=== PATIENT | male | born 1935 | race Two or more races ===

== ENCOUNTER 2019-04-18 13:27 | Emergency (ER) | payer MEDICARE, MEDICAID ==
[~2019-04-18] VITALS: Ht 170.2 cm; Wt 77.1 kg
[2019-04-18 13:36] VITALS: BP 115/68
[2019-04-18] MEDS ORDERED: VITAMIN B125000 MCG IM (13:39)
[2019-04-18] MEDS ORDERED: IRON159 MG PO (13:39)
--- NOTE | 2019-04-18 13:40 | NUR ---
ED Nurse Note: Patient brought in by medical staff from outpatient clinic due to tripped and fell incident prior to arrival to ED. Skin tear/laceration on bilateral hand noticed. patient is alert awake x4 ambulatory, breathing unlabored and even. patient denies any head injury.
--- NOTE | 2019-04-18 13:40 | Emergency Room Report ---
History of Present Illness General Chief Complaint: Multiple Trauma/Fall Source: Patient, Family Member Present Illness HPI 83-year-old male history of colon cancer in remission presents with bilateral wrist pain, patient tripped on a scooter on his way to the car, patient endorses sharp wrist pain aggravated with movement, the injury happened prior to arrival, he denies hitting his head, no chest pain, no shortness of breath, no LOC, patient broke his fall with his hands, he endorses the pain is alleviated by rest. Severity is moderate. Patient states the only work-up he wants is x-rays to make sure nothing is broken Allergies: Coded Allergies: No Known Allergies (Unverified , 04/18/19) Patient History Past Medical History: see triage record Reviewed Nursing Documentation: PMH: Agreed; PSxH: Agreed Review of Systems All Other Systems: negative except mentioned in HPI Physical Exam Last 24 Hour Vital Signs Date Time Temp Pulse Resp B/P (MAP) Pulse Ox O2 Delivery O2 Flow Rate FiO2 04/18/19 13:55 63 24 Room Air 04/18/19 13:36 97.0 63 24 115/68 96 Room Air 04/18/19 13:36 97.0 63 24 115/68 (84) 96 Room Air Sp02 EP Interpretation: reviewed, normal General Appearance: well appearing, no apparent distress, alert Head: normocephalic, atraumatic Eyes: bilateral eye PERRL, bilateral eye EOMI ENT: uvula midline, moist mucus membranes Neck: supple, thyroid normal, supple/symm/no masses Respiratory: lungs clear, no respiratory distress, no retraction, no accessory muscle use Cardiovascular #1: normal peripheral pulses, regular rate, rhythm, no edema, no gallop, no murmur Gastrointestinal: non tender, soft, no guarding, no rebound Musculoskeletal: other - Left wrist, 2+ radial pulses, radial median ulnar nerve intact, skin abrasions on the third fourth proximal phalanx, skin tears present, no obvious deformity, right wrist: 2+ radial pulses, tender to palpation distal radius, difficult to appreciate snuffbox tenderness, patient with diffuse pain, radial median ulnar nerves grossly intact Neurologic: alert, oriented x3 Psychiatric: mood/affect normal Skin: no rash, warm/dry Procedures Splinting Splinting #1: Consent: Verbal Location: Right upper extremity Hand-Made Type: plaster Splint: sugar-tong Pre-Proc Neuro Vasc Exam: normal Post-Proc Neuro Vasc Exam: normal Patient Tolerated: Well Complications: None Splinting #2: Consent: Verbal Location: Left hand Hand-Made Type: plaster Splint: Ulnar gutter Pre-Proc Neuro Vasc Exam: normal Post-Proc Neuro Vasc Exam: normal Patient Tolerated: Well Complications: None Medical Decision Making Diagnostic Impression: Primary Impression: Fall Additional Impressions: Distal radius fracture, right Fracture of fifth metacarpal bone of left hand ER Course 83-year-old male presents with distal radius fracture of the right right upper extremity, neurovascular exam intact, sugar tong splint was applied, left fifth distal metacarpal also fractured, splint applied ulnar gutter, neurovascular exam completely intact neurovascular exam remained intact, patient was counseled to follow-up with orthopedics, return precautions were discussed, Tdap was given, bacitracin applied to skin tears Patient and family counseled, patient to follow-up with orthopedic surgeon, family will help patient at home return precautions were discussed. EKG Diagnostic Results EKG Time: 13:28 EP Interpretation: NSR, rate 60, QTc 428, no acute ST elevations, normal axis Rate: normal Rhythm: NSR ST Segments: no acute changes ASA given to the pt in ED: No Other X-Ray Diagnostic Results Other X-Ray Diagnostic Results #1: X-Ray ordered: Right wrist complete # of Views/Limited Vs Complete: 3 View, Complete Indication: Pain EP Interpretation: Yes Interpretation: other - Right distal radius fracture Impression: Other - Right distal radius fracture Electronically Signed by: Ethan Ratliff MD Other X-Ray Diagnostic Results #2: X-Ray ordered: Left wrist complete # of Views/Limited Vs Complete: 3 View, Complete Indication: Pain EP Interpretation: Yes Interpretation: other - Distal fifth metacarpal fracture Impression: Other - distal fifth metacarpal fracture Electronically Signed by: Ethan Ratliff MD Disposition: HOME, SELF-CARE Condition: Stable Scripts Naproxen* (NAPROSYN*) 250 Mg Tablet 250 MG ORAL BID PRN for For Pain, #20 TAB 0 Refills Prov: Ethan Ratliff MD 04/18/19 Referrals: [facility] Patient Instructions: Metacarpal Fracture, [id number], Wrist Fracture, Easy- to-Read Additional Instructions: The patient was provided with discharge instructions, notified to follow-up with a primary care doctor and or specialist in the next 24-48 hours, and to return to the ED if they have worsening of their symptoms. Please note that this report is being documented using JLGOV technology. This can lead to erroneous entry secondary to incorrect interpretation by the dictating instrument. Follow up with orthopedic surgeon in 24 to 48 hours reevaluate fractures and determine if you need orthopedic surgery You may take Tylenol or ibuprofen for the pain. You may also take the prescription that was provided to you instead. Ethan Ratliff MD Apr 18, 2019 13:40
[2019-04-18] MEDS ORDERED: Acetaminophen 500mg (ES) tab ORAL ONE (13:45)
[2019-04-18] MEDS ORDERED: Tetanus/Diptheria/Pertussis IM ONE (13:45)
--- NOTE | 2019-04-18 14:10 | NUR ---
ED Nurse Note: xray being done. at bedside
[2019-04-18] MEDS ORDERED: NAPROXEN250 MG ORAL (14:21)
--- NOTE | 2019-04-18 14:21 | Diagnostic Imaging Report ---
Clinical Indication:Left wrist pain Technique: 3 views of the left wrist Comparison: None Findings: There is a fracture deformity of the distal fifth metacarpal, which appears old although not optimally demonstrated. No definite acute fractures. No dislocations. The bones are profoundly osteoporotic. The joint spaces are preserved. There are vascular calcifications. Impression: Age-indeterminate but suspect old fracture of the distal fifth metacarpal. Correlate clinically No definite acute fracture otherwise Osteoporosis
--- NOTE | 2019-04-18 14:23 | Diagnostic Imaging Report ---
Clinical Indication:Right wrist pain Technique: 3 views of the wrist Comparison: None Findings: There is a nondisplaced mostly transverse fracture of the distal radius. On the lateral view, this appears to also extend into the articular surface. No other acute fractures. No dislocations. The bones are probably osteoporotic. The joint spaces are preserved. There are vascular calcifications. Impression: Positive for distal radial fracture Osteoporosis. This agrees with the preliminary interpretation provided by the emergency room physician
[2019-04-18] MEDS ORDERED: Bacitracin Oint UD TOPIC ONE (14:30)
[2019-04-18 15:55] VITALS: BP 115/68
--- NOTE | 2019-04-18 15:55 | NUR ---
ER DISCHARGE NOTE: Patient is cleared to be discharged per ERMElizabeth HAMILTON, pt is aox4, on room air, with stable vital signs. pt was given dc and prescription instructions, pt was able to verbalize understanding, pt id band removed without complications. pt is able to ambulate with steady gait. pt took all belongings. Patient's transportation was arranged by [employer], called by KARL Ramsay.
== END 2019-04-18 15:55 | disposition home or self-care (01) ==
LOC: EMR 14:50
DX: S52.501A Unspecified fracture of the lower end of right radius, initial encounter for closed fracture (principal); S62.307A Unspecified fracture of fifth metacarpal bone, left hand, initial encounter for closed fracture; W01.0XXA Fall on same level from slipping, tripping and stumbling without subsequent striking against object, initial encounter; Y92.9 Unspecified place or not applicable; Z23 Encounter for immunization
CPT/HCPCS: 29125; 90471; 90715; 93005; 99284